=== PATIENT | male | born 1970 | race Caucasian/White ===

== ENCOUNTER 2017-05-17 11:11 | Emergency (ER) | payer OTHER ==
[2017-05-17 11:15] VITALS: BP 121/77
== END 2017-05-17 12:26 | disposition left against medical advice (07) ==
LOC: ER 11:11
DX: Z53.21 Procedure and treatment not carried out due to patient leaving prior to being seen by health care provider (principal)

== ENCOUNTER 2017-05-18 16:23 | Emergency (ER) | payer SELFPAY ==
--- NOTE | 2017-05-18 18:27 | ER Document Report ---
ED Medical Screen (RME) - General Chief Complaint: Penile Problem Stated Complaint: PENILE SWELLING, PAIN Time Seen by Provider: 05/18/17 18:26 Notes: Patient states for 5 days he has had a progressively worsening abscess on his penis. He states he believes is secondary to shaving. He denies any chronic medical problems. TRAVEL OUTSIDE OF THE [place] IN LAST 30 DAYS: No - Related Data Allergies/Adverse Reactions: Penicillins Allergy (Verified 05/18/17 18:00) Home Medications: Current Home Medications No Home Medications 05/18/17 [History] Past Medical History - Social History Chew tobacco use (# tins/day): No Frequency of alcohol use: Social Drug Abuse: None - Past Medical History Cardiac Medical History: Reports: Hx Hypertension - states is not on meds for the hypertension Renal/ Medical History: Denies: Hx Peritoneal Dialysis Psychiatric Medical History: Reports: Hx Depression Past Surgical History: Reports: Hx Herniorrhaphy - age 10 - Immunizations Hx Diphtheria, Pertussis, Tetanus Vaccination: Yes Physical Exam - Vital signs Vitals: Temp Pulse Resp BP Pulse Ox 97.5 F 91 18 122/76 99 05/18/17 16:42 05/18/17 16:42 05/18/17 16:42 05/18/17 16:42 05/18/17 16:42 Course - Vital Signs Vital signs: Temp Pulse Resp BP Pulse Ox 97.5 F 91 18 122/76 99 05/18/17 16:42 05/18/17 16:42 05/18/17 16:42 05/18/17 16:42 05/18/17 16:42
[2017-05-18 18:55] LABS: ABSOLUTE EOSINOPHILS # (AUTO) 0.5 10^3/uL (0.0-0.6); ABSOLUTE LYMPHOCYTES (AUTO) 1.3 10^3/uL (0.5-4.7); ABSOLUTE NEUT (AUTO) 7.4 10^3/uL (1.7-8.2); BASOPHILS % (AUTO) 0.3 % (0-2); EOSINOPHILS % (AUTO) 4.5 % (0-6); HEMATOCRIT 40.4 % (37.9-51.0); HEMOGLOBIN 14.1 g/dL (13.5-17.0); HGB HCT DIFFERENCE 1.9; LYMPHOCYTES % (AUTO) 12.8 % (13-45); MEAN CORPUSCULAR HEMOGLOBIN 32.1 pg (27.0-33.4); MEAN CORPUSCULAR HGB CONC 34.9 g/dL (32.0-36.0); MEAN CORPUSCULAR VOLUME 92 fl (80-97); MONOCYTES % (AUTO) 9.6 % (3-13); RED BLOOD COUNT 4.39 10^6/uL (4.35-5.55); RED CELL DISTRIBUTION WIDTH 12.9 % (11.5-14.0); SEGMENTED NEUTROPHILS % (AUTO) 72.8 % (42-78); WHITE BLOOD COUNT 10.2 10^3/uL (4.0-10.5)
[2017-05-18 19:12] LABS: ANION GAP 12 (5-19); BLOOD UREA NITROGEN 11 mg/dL (7-20); CALCIUM 9.2 mg/dL (8.4-10.2); CARBON DIOXIDE 27 mmol/L (22-30); CHLORIDE 104 mmol/L (98-107); CREATININE RESULT 0.87 mg/dL (0.52-1.25); GLUCOSE 95 mg/dL (75-110); POTASSIUM 4.1 mmol/L (3.6-5.0); SODIUM 143.1 mmol/L (137-145)
[2017-05-18] MEDS ORDERED: VANCOMYCIN HCL INJ 1000 MG VIAL IV ONE (19:57)
[2017-05-18] MEDS ORDERED: NORMAL SALINE 1000 ML 1,000 ML IV ONE (19:58)
--- NOTE | 2017-05-18 19:58 | ER Document Report ---
ED General - General Chief Complaint: Penile Problem Stated Complaint: PENILE SWELLING, PAIN Time Seen by Provider: 05/18/17 18:26 Notes: Patient is a 46-year-old male without any past medical history who presents with 5 days of progressively worsening swelling and pain into his penis and scrotum. Patient states that initially he had what appeared to be an ingrown hair at the base of his penis that he tried to shave. He states that the area became increasingly red, irritated and more painful. He states that since that time he has had a severe, constant, throbbing, aching pain that is worse at the base of the penis but is present in the entirety of his genitals. He has never had similar symptoms in the past. Nothing improves the pain. He still states touching the area worsens the pain. He has not been able see a primary care doctor regarding today's concerns. He notes that he has had subjective fever at home but has not recorded a temperature. TRAVEL OUTSIDE OF THE [place] IN LAST 30 DAYS: No - Related Data Allergies/Adverse Reactions: Penicillins Allergy (Verified 05/18/17 18:00) Home Medications: Current Home Medications No Home Medications 05/18/17 [History] Past Medical History - General Information source: Patient - Social History Smoking Status: Current Some Day Smoker Chew tobacco use (# tins/day): No Frequency of alcohol use: Social Drug Abuse: None Lives with: Family Family History: Reviewed & Not Pertinent Patient has suicidal ideation: No Patient has homicidal ideation: No - Past Medical History Cardiac Medical History: Reports: Hx Hypertension - states is not on meds for the hypertension Renal/ Medical History: Denies: Hx Peritoneal Dialysis Psychiatric Medical History: Reports: Hx Depression Past Surgical History: Reports: Hx Herniorrhaphy - age 10 - Immunizations Hx Diphtheria, Pertussis, Tetanus Vaccination: Yes Review of Systems - Review of Systems Notes: Constitutional: Negative for fever. HENT: Negative for sore throat. Eyes: Negative for visual changes. Cardiovascular: Negative for chest pain. Respiratory: Negative for shortness of breath. Gastrointestinal: Negative for abdominal pain, vomiting or diarrhea. Genitourinary: Negative for dysuria. Musculoskeletal: Negative for back pain. Skin: Positive for an abscess with associated cellulitis at the base of the penis and surrounding scrotum Neurological: Negative for headaches, weakness or numbness. 10 point ROS negative except as marked above and in HPI. Physical Exam - Vital signs Vitals: Temp Pulse Resp BP Pulse Ox 97.5 F 91 18 122/76 99 05/18/17 16:42 05/18/17 16:42 05/18/17 16:42 05/18/17 16:42 05/18/17 16:42 Interpretation: Normal Notes: PHYSICAL EXAMINATION: GENERAL: Appears uncomfortable but in no acute distress HEAD: Atraumatic, normocephalic. EYES: Pupils equal round and reactive to light, extraocular movements intact, sclera anicteric, conjunctiva are normal. ENT: nares patent, oropharynx clear without exudates. Moist mucous membranes. NECK: Normal range of motion, supple without lymphadenopathy LUNGS: Breath sounds clear to auscultation bilaterally and equal. No wheezes rales or rhonchi. HEART: Regular rate and rhythm without murmurs ABDOMEN: Soft, nontender, normoactive bowel sounds. No guarding, no rebound. No masses appreciated. : There is extensive erythema and edema of the entirety of the penis and scrotum. There is an abscess that starts at the dorsal base of the penis and extends towards the 9 o'clock position again at the base of the penis. There are 4 open areas, the edges of which are necrotic. EXTREMITIES: Normal range of motion, no pitting or edema. No cyanosis. NEUROLOGICAL: No focal neurological deficits. Moves all extremities spontaneously and on command. PSYCH: Normal mood, normal affect. SKIN: Warm, Dry, normal turgor, no rashes or lesions noted. Course - Re-evaluation Re-evalutation: 05/18/17 19:56 Patient presents with a large abscess extending from the dorsal base of the penis at the 12 o'clock position toward the 9 o'clock position with extensive swelling of the entirety of the penis and scrotum and associated erythema concerning for extension of the cellulitis over the area. The abscess itself is in a highly sensitive position and there are 2 openings that do demonstrate purulent contents underneath. Given the location and size of this abscess with associated cellulitis that is diffusely present on the penis and scrotum, I believe the patient requires transfer for urology assessment and likely definitive management under general anesthesia on the operating room. In the interim I have started the patient on IV antibiotics including vancomycin and ceftriaxone. Patient has also been provided IV pain medications. I have contacted [facility] for transfer. 05/18/17 20:13 I have spoken with the urologist on-call who has accepted the patient for transfer. The patient will go via personal vehicle. EMTALA has been completed. Patient will leave as soon as the antibiotics that have started are completed. 05/18/17 22:51 Patient will apparently follow-up in office tomorrow as the urologist at [facility] called back and stated the patient is taking too long to arrive. I have again expressed that based on the information I have shared with including a photo of the patient's genitals, I think the safest plan is for inpatient admission, IV antibiotics, and OR management. However, states this can be completed as an outpatient safely. 05/18/17 23:17 I have discussed with the patient and his family at the bedside at length regarding the plan proposed by . The patient and his family bedside has spontaneously expressed extreme discomfort with this plan stating that they do not believe that this is a procedure that could be completed in the office and also inquiring about what the solution to his diffuse cellulitis would be. Also of note, since patient has been here the cellulitis has started extend up to his suprapubic region. I have stated that I do agree that this appears to again be a pathology that requires management in an operating room setting as well as inpatient hospitalization for IV antibiotics. The patient and his note this time have requested that I transfer him to an alternative facility as they do not feel comfortable with the plan initiated by Dr. Dumont. I have contacted [facility] for transfer. 05/18/17 23:40 I have spoken with a physician office assistant receptionist working under Dr. Cruz who is accepted the patient at [facility]. The patient will go via private vehicle and his family members will be driving him as he has had narcotic pain medications. He is stable for transfer - Vital Signs Vital signs: Temp Pulse Resp BP Pulse Ox 97.5 F 88 18 124/83 100 05/18/17 22:43 05/18/17 22:43 05/18/17 22:43 05/18/17 22:43 05/18/17 22:43 - Laboratory Result Diagrams: 05/18/17 18:45 05/18/17 18:45 Laboratory results interpreted by me: 05/18/17 18:45 Lymphocytes % 12.8 L Discharge - Discharge Clinical Impression: Abscess of shaft of penis, Cellulitis of penis, Cellulitis of scrotum Condition: Fair Disposition: [facility] Additional Instructions: Please go to the [facility] urology office tomorrow morning at 7:15 AM. The address is [address] [place] [address].
[2017-05-18] MEDS: MORPHINE SULFATE 10 MG/ML INJ IV PRN ×2 (20:13→23:16)
[2017-05-18] MEDS ORDERED: CEFTRIAXONE 1 GM/D5W RTU 1 GM/50 ML RTUPB IV ONE (21:00)
[2017-05-18 22:52] VITALS: BP 124/83
[2017-05-18] MEDS ORDERED: HYDROCODONE/ACETAMINOPHEN 5-325 MG 6 TAB/DSPK PO PRN (22:58)
[2017-05-18] MEDS ORDERED: MORPHINE SULFATE 10 MG/ML INJ IV ONE (23:39)
== END 2017-05-19 00:37 | disposition short-term general hospital (02) ==
LOC: ER 16:23
DX: N48.21 Abscess of corpus cavernosum and penis (principal); N49.2 Inflammatory disorders of scrotum; F17.200 Nicotine dependence, unspecified, uncomplicated; Z88.0 Allergy status to penicillin
CPT/HCPCS: 96376; 99284; 96361; 96375; 96365; 36415; 85025; 80048; J2270 ×2; J7030; J3370; J0696

== ENCOUNTER 2020-05-04 10:17 | Inpatient (IN) | payer SELFPAY ==
--- NOTE | 2020-05-04 10:37 | ER Document Report ---
ED Medical Screen (RME) - General Chief Complaint: Abdominal Pain Stated Complaint: ABDOMINAL PAIN Time Seen by Provider: 05/04/20 10:30 Notes: Patient is a 49-year-old male presents emergency department with a chief complaint of mid upper abdominal pain. States that his symptoms started a couple days ago. States that he has been having diarrhea. He does not know if he has had any contact with anybody who tested positive for COVID-19, but would like to be tested. Denies any alcohol use. Exam: Tender mid upper abdomen. I have greeted and performed a rapid initial assessment of this patient. A comprehensive ED assessment and evaluation of the patient, analysis of test results and completion of medical decision making process will be conducted by an additional ED providers. TRAVEL OUTSIDE OF THE [place] IN LAST 30 DAYS: No - Related Data Allergies/Adverse Reactions: Penicillins Allergy (Verified 05/04/20 10:30) Past Medical History - Past Medical History Cardiac Medical History: Reports: Hx Hypertension - states is not on meds for the hypertension Renal/ Medical History: Denies: Hx Peritoneal Dialysis Psychiatric Medical History: Reports: Hx Depression Past Surgical History: Reports: Hx Herniorrhaphy - age 10 - Immunizations Hx Diphtheria, Pertussis, Tetanus Vaccination: Yes Physical Exam - Vital signs Vitals: Temp Pulse Resp BP Pulse Ox 97.6 F 105 H 16 135/97 H 100 05/04/20 10:29 05/04/20 10:29 05/04/20 10:29 05/04/20 10:29 05/04/20 10:29 Course - Vital Signs Vital signs: Temp Pulse Resp BP Pulse Ox 97.6 F 105 H 16 135/97 H 100 05/04/20 10:29 05/04/20 10:29 05/04/20 10:29 05/04/20 10:29 05/04/20 10:29
[2020-05-04] MEDS ORDERED: MAG HYDROX/AL HYDROX/SIMETH SUSP 30 ML UDCUP PO ONE (10:38)
[2020-05-04] MEDS ORDERED: NORMAL SALINE 1000 ML 1,000 ML IV ONE ×2 (10:38→12:41)
[2020-05-04] MEDS ORDERED: METOCLOPRAMIDE HCL ORAL SOLN 10 MG/10 ML UDCUP PO ONE (10:38)
[2020-05-04] MEDS ORDERED: LIDOCAINE 2% VISCOUS SOLN 15 ML UDCUP PO ONE (10:38)
[2020-05-04] MEDS ORDERED: ONDANSETRON HCL INJ/PF 4 MG/2 ML SDV IV ONE (11:19)
--- NOTE | 2020-05-04 11:20 | ER Document Report ---
ED GI/ - General Chief Complaint: Abdominal Pain Stated Complaint: ABDOMINAL PAIN Time Seen by Provider: 05/04/20 10:30 Mode of Arrival: Ambulatory Information source: Patient Notes: Patient presents with a 2-day history of belching and diarrhea. Patient states he has had diarrhea x10 episodes today. Patient complains of upper abdominal tenderness. Patient denies any fever. Patient reports nausea vomiting x2 episodes. Patient denies any urinary symptoms. Patient has underlying history of hypertension, depression and previous inguinal hernia repair. TRAVEL OUTSIDE OF THE [place] IN LAST 30 DAYS: No - HPI Patient complains to provider of: Abdominal pain, Diarrhea, Vomiting Onset: Other - 2 days Timing/Duration: Worse Quality of pain: Achy, Pressure Pain Level: 4 Location: Epigastric Associated symptoms: Diarrhea, Nausea, Vomiting. denies: Blood in emesis, Blood in stool, Constipation, Urinary hesitancy, Urinary frequency, Urinary retention, Urinary urgency Exacerbated by: Denies Relieved by: Denies Similar symptoms previously: No Recently seen / treated by doctor: No - Related Data Allergies/Adverse Reactions: Penicillins Allergy (Verified 05/04/20 12:03) Past Medical History - General Information source: Patient - Social History Smoking Status: Never Smoker Frequency of alcohol use: None Drug Abuse: None Occupation: None Family History: Reviewed & Not Pertinent - Past Medical History Cardiac Medical History: Reports: Hx Hypertension - states is not on meds for the hypertension Renal/ Medical History: Denies: Hx Peritoneal Dialysis Psychiatric Medical History: Reports: Hx Depression Past Surgical History: Reports: Hx Herniorrhaphy - age 10 - Immunizations Hx Diphtheria, Pertussis, Tetanus Vaccination: Yes Review of Systems - Review of Systems Constitutional: No symptoms reported. denies: Fever EENT: No symptoms reported Cardiovascular: No symptoms reported. denies: Chest pain Respiratory: No symptoms reported. denies: Cough, Short of breath Gastrointestinal: Abdomen distended, Abdominal pain, Diarrhea, Nausea, Vomiting. denies: Black stools, Rectal bleeding Genitourinary: No symptoms reported. denies: Dysuria, Flank pain Male Genitourinary: No symptoms reported Musculoskeletal: No symptoms reported. denies: Back pain Skin: No symptoms reported Hematologic/Lymphatic: No symptoms reported Neurological/Psychological: No symptoms reported Physical Exam - Vital signs Vitals: Temp Pulse Resp BP Pulse Ox 97.6 F 105 H 16 135/97 H 100 05/04/20 10:29 05/04/20 10:29 05/04/20 10:29 05/04/20 10:29 05/04/20 10:29 - Notes Notes: PHYSICAL EXAMINATION: GENERAL: Well-appearing and in no acute distress. HEAD: Atraumatic, normocephalic. EYES: sclera anicteric, conjunctiva are normal. ENT: nares patent. Moist mucous membranes. NECK: Normal range of motion, supple without lymphadenopathy LUNGS: CTAB and equal. No wheezes rales or rhonchi. HEART: Regular rate and rhythm without murmurs ABDOMEN: Mild distention, epigastric, periumbilical tenderness normal bowel sounds, no guarding. EXTREMITIES: Normal range of motion, no pitting edema. No cyanosis. BACK:No CVA tenderness NEUROLOGICAL: Cranial nerves grossly intact. Normal speech. PSYCH: Normal mood, normal affect. SKIN: Warm, Dry, normal turgor, no rashes or lesions noted Course - Re-evaluation Re-evalutation: 05/04/20 12:17 Patient with continued vomiting despite IV Zofran. Patient also complaining of continued abdominal pain requesting something for pain relief. Medications ordered. 05/04/20 13:06 Patient resting with eyes closed, arouses easily to voice. Patient states nausea and abdominal tenderness have resolved at this time. 05/04/20 16:10 Patient with epigastric tenderness at this time. Patient is awaiting CT imaging. No additional vomiting. 05/04/20 16:[address] Vasquez and Dr. Sharp, Dr. Sharp and to evaluate patient. NG tube ordered. 05/04/20 18:01 Dr. Sharp agrees to accept patient for admission. - Vital Signs Vital signs: Temp Pulse Resp BP Pulse Ox 97.8 F 71 16 148/89 H 100 05/04/20 16:47 05/04/20 16:47 05/04/20 16:47 05/04/20 16:47 05/04/20 16:47 - Laboratory Result Diagrams: 05/04/20 11:50 05/04/20 11:50 Laboratory results interpreted by me: 05/04/20 05/04/20 11:50 11:50 WBC 11.1 H RBC 5.69 H Hgb 17.4 H RDW 14.1 H Absolute Neuts (auto) 8.5 H Carbon Dioxide 19 L Total Protein 9.1 H Labs- All tests 24 hr 05/04/20 05/04/20 05/04/20 11:50 11:50 13:55 WBC 11.1 H RBC 5.69 H Hgb 17.4 H Hct 49.2 MCV 87 MCH 30.6 MCHC 35.3 RDW 14.1 H Plt Count 390 Lymph % (Auto) 15.0 [place] % (Auto) 6.5 Eos % (Auto) 2.1 Baso % (Auto) 0.5 Absolute Neuts (auto) 8.5 H Absolute Lymphs (auto) 1.7 Absolute Monos (auto) 0.7 Absolute Eos (auto) 0.2 Absolute Basos (auto) 0.1 Seg Neutrophils % 75.9 Sodium 139.9 Potassium 4.1 Chloride 106 Carbon Dioxide 19 L Anion Gap 15 BUN 12 Creatinine 0.92 Est GFR ( Amer) > 60 Est GFR (MDRD) Non-Af > 60 Glucose 108 Calcium 9.6 Total Bilirubin 0.5 Direct Bilirubin 0.2 Neonat Total Bilirubin Not Reportable Neonat Direct Bilirubin Not Reportable Neonat Indirect Bili Not Reportable AST 27 ALT 27 Alkaline Phosphatase 83 Total Protein 9.1 H Albumin 4.9 Lipase 28.9 Urine Color YELLOW Urine Appearance CLEAR Urine pH 5.0 Ur Specific Lowry 1.021 Urine Protein NEGATIVE Urine Glucose (UA) NEGATIVE Urine Ketones NEGATIVE Urine Blood NEGATIVE Urine Nitrite NEGATIVE Urine Bilirubin NEGATIVE Urine Urobilinogen NEGATIVE Ur Leukocyte Esterase NEGATIVE Urine WBC (Auto) 1 Urine RBC (Auto) 1 Urine Mucus (Auto) FEW Urine Ascorbic Acid NEGATIVE - Diagnostic Test Radiology reviewed: Image reviewed, Reports reviewed Discharge - Discharge Clinical Impression: Abdominal pain Qualifiers: Abdominal location: upper abdomen, unspecified Qualified Code(s): R10.10 - Upper abdominal pain, unspecified Bowel obstruction Qualifiers: Intestinal obstruction type: unspecified Intestinal obstruction extent: unspecified extent Qualified Code(s): K56.609 - Unspecified intestinal obstruction, unspecified as to partial versus complete obstruction Condition: Fair Disposition: ADMITTED INPATIENT Admitting Provider: Surgicalist Unit Admitted: Surgical Floor
[2020-05-04 12:11] LABS: ABSOLUTE BASOPHILS # (AUTO) 0.1 10^3/uL (0.0-0.2); ABSOLUTE EOSINOPHILS # (AUTO) 0.2 10^3/uL (0.0-0.6); ABSOLUTE LYMPHOCYTES (AUTO) 1.7 10^3/uL (0.5-4.7); ABSOLUTE MONOCYTES (AUTO) 0.7 10^3/uL (0.1-1.4); ABSOLUTE NEUT (AUTO) 8.5 10^3/uL (1.7-8.2); BASOPHILS % (AUTO) 0.5 % (0-2); EOSINOPHILS % (AUTO) 2.1 % (0-6); HEMATOCRIT 49.2 % (37.9-51.0); HEMOGLOBIN 17.4 g/dL (13.5-17.0); MEAN CORPUSCULAR HEMOGLOBIN 30.6 pg (27.0-33.4); MEAN CORPUSCULAR HGB CONC 35.3 g/dL (32.0-36.0); MEAN CORPUSCULAR VOLUME 87 fl (80-97); MONOCYTES % (AUTO) 6.5 % (3-13); PLATELET COUNT 390 10^3/uL (150-450); RED BLOOD COUNT 5.69 10^6/uL (4.35-5.55); RED CELL DISTRIBUTION WIDTH 14.1 % (11.5-14.0); SEGMENTED NEUTROPHILS % (AUTO) 75.9 % (42-78); TOTAL CELLS COUNTED % (AUTO) 100 %; WHITE BLOOD COUNT 11.1 10^3/uL (4.0-10.5)
[2020-05-04] MEDS ORDERED: DIPHENHYDRAMINE HCL 50 MG/ML VIAL IV ONE (12:16)
[2020-05-04] MEDS ORDERED: PROCHLORPERAZINE EDISYLATE INJ 10 MG/2 ML VIAL IV ONE (12:16)
[2020-05-04] MEDS ORDERED: FENTANYL CITRATE INJ/PF 100 MCG/2 ML AMPUL IV ONE (12:17)
[2020-05-04 12:26] LABS: ALBUMIN 4.9 g/dL (3.5-5.0); ALKALINE PHOSPHATASE 83 U/L (38-126); ANION GAP 15 (5-19); ASPARTATE AMINO TRANSFERASE 27 U/L (17-59); BILIRUBIN,DIRECT 0.2 mg/dL (0.0-0.4); BILIRUBIN,TOTAL 0.5 mg/dL (0.2-1.3); BLOOD UREA NITROGEN 12 mg/dL (7-20); CALCIUM 9.6 mg/dL (8.4-10.2); CARBON DIOXIDE 19 mmol/L (22-30); CHLORIDE 106 mmol/L (98-107); GLUCOSE 108 mg/dL (75-110); POTASSIUM 4.1 mmol/L (3.6-5.0); TOTAL PROTEIN 9.1 g/dL (6.3-8.2)
--- NOTE | 2020-05-04 12:49 | RADIOLOGY REPORT (SQ) ---
EXAM DESCRIPTION: ABDOMEN 2 VIEWS IMAGES COMPLETED DATE/TIME: 05/04/2020 12:21 pm REASON FOR STUDY: abd pain, n/v/d COMPARISON: None. NUMBER OF VIEWS: 2 TECHNIQUE: Supine and upright radiographic image of the abdomen acquired. LIMITATIONS: None. FINDINGS: BOWEL GAS PATTERN: There are dilated small bowel loops over the mid abdomen measuring up t o 3.5 cm diameter with small air-fluid levels. No free air identified. CALCIFICATIONS: No suspicious calcifications. SOFT TISSUES: No gross mass or suggestion of organomegaly. HARDWARE: None in the abdomen. BONES: No acute fracture. No worrisome bone lesions. OTHER: No other significant finding. IMPRESSION: There are dilated small bowel loops over the mid abdomen measuring up to 3.5 cm diameter with small air-fluid levels, possible developing early obstruction versus focal inflammatory process . Follow-up recommended. TECHNICAL DOCUMENTATION: JOB ID: [id number] [place]-72 2010 [employer]- All Rights Reserved Reading location - IP/workstation name: [email or web address]
[2020-05-04 14:24] LABS: APPEARANCE,URINE CLEAR; BILIRUBIN,URINE NEGATIVE (NEGATIVE); COLOR,URINE YELLOW; GLUCOSE, URINE NEGATIVE (NEGATIVE); KETONES,URINE NEGATIVE (NEGATIVE); LEUKOCYTE ESTERASE,URINE NEGATIVE (NEGATIVE); NITRITE,URINE NEGATIVE (NEGATIVE); PROTEIN,URINE NEGATIVE (NEGATIVE); URINE SPECIFIC GRAVITY 1.021; UROBILINOGEN,URINE NEGATIVE mg/dL (<2.0)
[2020-05-04] MEDS ORDERED: PHARMACY COMMUNICATION ORDER MC NR (17:00)
--- NOTE | 2020-05-04 17:11 | RADIOLOGY REPORT (SQ) ---
EXAM DESCRIPTION: CT ABD/PELVIS WITH IV ORAL IMAGES COMPLETED DATE/TIME: 05/04/2020 4:36 pm REASON FOR STUDY: abd pain, eval for obstruction COMPARISON: None. TECHNIQUE: CT scan of the abdomen and pelvis performed with intravenous and oral contrast using jenna aracely scanning technique with dynamic intravenous contrast injection. Images reviewed with lung, soft t issue, and bone windows. Reconstructed coronal and sagittal MPR images reviewed. Delayed images for e valuation of the urinary system also acquired. All images stored on PACS. All CT scanners at this facility use dose modulation, iterative reconstruction, and/or weight based d osing when appropriate to reduce radiation dose to as low as reasonably achievable (ALARA). [facility]: Dose Right [facility]: CareDose [facility]: Dose Right [facility]: Teradose 4D [facility]: [place] CONTRAST TYPE AND DOSE: contrast/concentration: Isovue 350.00 mmol/ml; Total Contrast Delivered: 96. 0 ml; Total Saline Delivered: 71.0 ml RENAL FUNCTION: BUN 12 creatinine 0.92. RADIATION DOSE: CT Rad equipment meets quality standard of care and radiation dose reduction techniq ues were employed. CTDIvol: 7.0 - 9.9 mGy. DLP: 1029 mGy-cm.. LIMITATIONS: None. FINDINGS: LOWER CHEST: No significant findings. No nodules or infiltrates. LIVER: Normal size. No masses. No dilated ducts. SPLEEN: Normal size. No focal lesions. PANCREAS: No masses. No significant calcifications. No adjacent inflammation or peripancreatic fluid collections. Pancreatic duct not dilated. GALLBLADDER: No identified stones by CT criteria. No inflammatory changes to suggest cholecystitis. ADRENAL GLANDS: No significant masses or asymmetry. RIGHT KIDNEY AND URETER: No solid masses. No significant calcification. No hydronephrosis or hydroure ter. LEFT KIDNEY AND URETER: No solid masses. No significant calcification. No hydronephrosis or hydrouret er. AORTA AND VESSELS: No aneurysm. No dissection. Renal arteries, SMA, celiac without stenosis. RETROPERITONEUM: No retroperitoneal adenopathy, hemorrhage or masses. BOWEL AND PERITONEAL CAVITY: Contrast in the stomach which is markedly distended. Diffuse dilation t hroughout the small bowel. No visualized masses. No free fluid. No inflammatory changes or thickenin g of bowel wall. APPENDIX: Normal. PELVIS: No significant masses. Normal bladder. No free fluid. ABDOMINAL WALL: No masses. No hernias. BONES: Wedge deformity of the L4 vertebra. No other significant findings. OTHER: No other significant finding. IMPRESSION: 1. DISTAL SMALL BOWEL OBSTRUCTION. A CLEAR-CUT OBSTRUCTING LESION IS NOT VISUALIZED. 2. 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 3. NO OTHER SIGNIFICANT OR ACUTE FINDINGS IN THE ABDOMEN OR PELVIS. TECHNICAL DOCUMENTATION: JOB ID: [id number] Quality ID # [id number]: Final reports with documentation of one or more dose reduction techniques (e.g., Au tomated exposure control, adjustment of the mA and/or kV according to patient size, use of iterative reconstruction technique) 2010 [employer]- All Rights Reserved Reading location - IP/workstation name: [email or web address]
[2020-05-04] MEDS ORDERED: LORAZEPAM INJ 2 MG/1 ML VIAL IV ONE (17:19)
[2020-05-04] MEDS ORDERED: ONDANSETRON HCL INJ/PF 4 MG/2 ML SDV IV PRN (18:00)
--- NOTE | 2020-05-04 18:07 | PDOC H&P ---
History of Present Illness Admission Date/PCP: NO LOCALDC Patient complains of: Abdominal pain nausea vomiting diarrhea History of Present Illness: ELEAZAR HARDING is a 49 year old male Presents to the emergency department via ground rescue with a 3-1/2 to 4-day history of abdominal pain nausea vomiting and diarrhea. He thinks he got sick after eating some turkey. Patient denies similar episodes, history of bowel obstruction, or abdominal trauma. Seen in the emergency department where he was found to be dehydrated received 2 L of IV fluids. Acute abdominal series suggested a possible small bowel obstruction and a CT scan with oral and IV contrast showed multiple dilated loops of small bowel, however gas throughout the colon and rectum. Findings consistent with gastroenteritis, versus ileus versus partial small bowel obstruction. Surgery was consulted, patient was advised admission, n.p.o., IV fluids and nasogastric decompression. Nasogastric tube, 16 Vincent[place], inserted with return of 500 cc of fluid. Patient clinically improved. Patient now being admitted to the surgicalist service. No Covid test has been performed Past Medical History Past Medical History: History of suicidal attempts; hypertension Cardiac Medical History: Reports: Hypertension - states is not on meds for the hypertension Psychiatric Medical History: Reports: Depression Past Surgical History Past Surgical History: Left inguinal herniorrhaphy, open Past Surgical History: Reports: Herniorrhaphy - age 10, Orthopedic Surgery - right arm Social History Information Source: Patient Smoking Status: Unknown if Ever Smoked Electronic Cigarette use?: Yes Frequency of Alcohol Use: Heavy Hx Recreational Drug Use: Yes Drugs: Cocaine, Marijuana, Other Hx Prescription Drug Abuse: Yes Family History Family History: None, Reviewed & Not Pertinent Parental Family History Reviewed: No Children Family History Reviewed: No Sibling(s) Family History Reviewed.: No Medication/Allergy Home Medications: No Home Medications 05/18/17 Allergies/Adverse Reactions: Penicillins Allergy (Verified 05/04/20 12:03) Review of Systems ROS unobtainable: Due to mental status, Other - Patient received Ativan, and is very somnolent Physical Exam Vital Signs: Temp Pulse Resp BP Pulse Ox 97.8 F 71 16 148/89 H 100 05/04/20 16:47 05/04/20 16:47 05/04/20 16:47 05/04/20 16:47 05/04/20 16:47 Intake & Output 05/03/20 05/04/20 05/05/20 06:59 06:59 06:59 Intake Total 2000 Output Total 300 Balance 1700 Weight 83.915 kg General appearance: PRESENT: mild distress, other - Nasogastric tube functioning and draining gastric contents, cloudy orange color Head exam: PRESENT: normocephalic Eye exam: PRESENT: EOMI Mouth exam: PRESENT: dry mucosa Neck exam: PRESENT: full ROM Respiratory exam: PRESENT: rhonchi Cardiovascular exam: PRESENT: RRR Pulses: PRESENT: normal carotid pulses, normal radial pulses, normal femoral pulses GI/Abdominal exam: PRESENT: other - Slightly distended, nontender, no peritoneal signs no rigidity. No organomegaly. Rectal exam: PRESENT: deferred Extremities exam: PRESENT: full ROM Musculoskeletal exam: PRESENT: full ROM Neurological exam: PRESENT: oriented to person, oriented to place, oriented to time, oriented to situation Psychiatric exam: PRESENT: other - Very sleepy Results Laboratory Results: 05/04/20 11:50 05/04/20 11:50 05/04/20 05/04/20 05/04/20 11:50 11:50 13:55 WBC 11.1 H RBC 5.69 H Hgb 17.4 H Hct 49.2 MCV 87 MCH 30.6 MCHC 35.3 RDW 14.1 H Plt Count 390 Seg Neutrophils % 75.9 Sodium 139.9 Potassium 4.1 Chloride 106 Carbon Dioxide 19 L Anion Gap 15 BUN 12 Creatinine 0.92 Est GFR ( Amer) > 60 Glucose 108 Calcium 9.6 Total Bilirubin 0.5 AST 27 Alkaline Phosphatase 83 Total Protein 9.1 H Albumin 4.9 Lipase 28.9 Urine Color YELLOW Urine Appearance CLEAR Urine pH 5.0 Ur Specific [place] 1.021 Urine Protein NEGATIVE Urine Glucose (UA) NEGATIVE Urine Ketones NEGATIVE Urine Blood NEGATIVE Urine Nitrite NEGATIVE Ur Leukocyte Esterase NEGATIVE Urine WBC (Auto) 1 Urine RBC (Auto) 1 Impressions: Abdomen X-Ray 05/04/20 11:51 IMPRESSION: There are dilated small bowel loops over the mid abdomen measuring up to 3.5 cm diameter with small air-fluid levels, possible developing early obstruction versus focal inflammatory process. Follow-up recommended. Abdomen/Pelvis CT 05/04/20 16:30 IMPRESSION: 1. DISTAL SMALL BOWEL OBSTRUCTION. A CLEAR-CUT OBSTRUCTING LESION IS NOT V ISUALIZED. 2. 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 3. NO OTHER SIGNIFICANT OR ACUTE FINDINGS IN THE ABDOMEN OR PELVIS. Assessment & Plan - Diagnosis (1) Abdominal pain Qualifiers: Abdominal location: upper abdomen, unspecified Qualified Code(s): R10.10 - Upper abdominal pain, unspecified Is this a current diagnosis for this admission?: Yes Plan: Impression: Acute abdominal pain associated with nausea and vomiting diarrhea, clinical picture and radiographic images most consistent with probable gastroenteritis; low clinical suspicion for acute abdomen, or small bowel obstruction. Recommendations: 1. Admit, keep n.p.o., IV fluids and continue nasogastric decompression 2. We will check abdominal films in the morning. Hopefully intra-abdominal process will have resolved, and nasogastric tube can be removed soon 3. I have reviewed the above with the emergency department staff. (2) Dehydration Is this a current diagnosis for this admission?: Yes (3) Substance abuse Is this a current diagnosis for this admission?: Yes (4) Smoker Is this a current diagnosis for this admission?: Yes - Time Time Spent with patient: 30 minutes Time Spent: 50 to 70 Minutes Critical Time spent with patient: Less than 15 minutes Smoking Cessation Education: 3 to 10 minutes Medications reviewed and adjusted accordingly: Yes Anticipated Discharge Disposition: Home, Self Care Anticipated Discharge Timeframe: within 48 hours
[2020-05-04] MEDS: RINGERS SOLUTION,LACTATED 1,000 ML IV PRN (20:33)
[2020-05-05] MEDS: RINGERS SOLUTION,LACTATED 1,000 ML IV PRN ×4 (05:56→23:47)
--- NOTE | 2020-05-05 09:17 | RADIOLOGY REPORT (SQ) ---
EXAM DESCRIPTION: KUB/ABDOMEN (SINGLE VIEW) IMAGES COMPLETED DATE/TIME: 05/04/2020 6:11 pm REASON FOR STUDY: Check Placement of NG Tube COMPARISON: None. NUMBER OF VIEWS: One view. TECHNIQUE: Supine radiographic image of the abdomen acquired. LIMITATIONS: None. FINDINGS: BOWEL GAS PATTERN: Scattered non-dilated gas-filled small bowel loops. Nonspecific patter n. CALCIFICATIONS: No suspicious calcifications. SOFT TISSUES: No gross mass or suggestion of organomegaly. Contrast material in the renal collecting system. HARDWARE: Nasogastric catheter tip and side-port overlies the body of the stomach. BONES: No acute fracture. No worrisome bone lesions. OTHER: No other significant finding. IMPRESSION: Nasogastric catheter tip and side-port overlies the body of the stomach.NON-SPECIFIC BOW EL GAS PATTERN. TECHNICAL DOCUMENTATION: JOB ID: [id number] 2010 [employer]- All Rights Reserved Reading location - IP/workstation name: [employer]
--- NOTE | 2020-05-05 09:19 | RADIOLOGY REPORT (SQ) ---
EXAM DESCRIPTION: ABDOMEN 2 VIEWS IMAGES COMPLETED DATE/TIME: 05/05/2020 7:37 am REASON FOR STUDY: Interval change in bowel gas pattern COMPARISON: 05/04/2020 NUMBER OF VIEWS: Two views. TECHNIQUE: Supine and erect/decubitus radiographic images of the abdomen acquired. LIMITATIONS: None. FINDINGS: FREE AIR: None. No abnormal gas collections. LUNG BASES: Clear. BOWEL GAS PATTERN: Similar dilated small bowel loops over the mid abdomen with a few air fluid levels . CALCIFICATIONS: No suspicious calcifications. SOFT TISSUES: No gross mass or suggestion of organomegaly. Contrast material fills the bladder. HARDWARE: NG tube tip overlies the distal body of the stomach. BONES: No acute fracture. No worrisome bone lesions. OTHER: No other significant finding. IMPRESSION: Similar dilated small bowel loops over the mid abdomen with a few air fluid levels. NG tube tip overlies the distal body of the stomach. TECHNICAL DOCUMENTATION: JOB ID: [id number] 2010 [employer]- All Rights Reserved Reading location - IP/workstation name: [email or web address]
--- NOTE | 2020-05-05 10:00 | PDOC PROGRESS REPORT ---
Subjective Date:: 05/05/20 Reason For Visit: PROBABLE GASTROENTERITIS Patient at bedrest, uneventful night; nasogastric tube now clear gastric fluid. Patient states he feels much better. Patient voided on his own 900 cc of urine. Physical Exam Vital Signs: Temp Pulse Resp BP Pulse Ox 97.3 F 71 18 130/75 H 100 05/05/20 08:05 05/05/20 08:05 05/05/20 08:05 05/05/20 08:05 05/05/20 08:05 Intake & Output 05/04/20 05/05/20 05/06/20 06:59 06:59 06:59 Intake Total 3000 Output Total 1200 Balance 1800 Weight 81.8 kg General appearance: PRESENT: other - Remains very sleepy GI/Abdominal exam: PRESENT: other - Abdomen not distended no peritoneal signs no rigidity. No guarding. Results Laboratory Results: 05/04/20 11:50 05/04/20 11:50 05/04/20 05/04/20 05/04/20 11:50 11:50 13:55 WBC 11.1 H RBC 5.69 H Hgb 17.4 H Hct 49.2 MCV 87 MCH 30.6 MCHC 35.3 RDW 14.1 H Plt Count 390 Seg Neutrophils % 75.9 Sodium 139.9 Potassium 4.1 Chloride 106 Carbon Dioxide 19 L Anion Gap 15 BUN 12 Creatinine 0.92 Est GFR ( Amer) > 60 Glucose 108 Calcium 9.6 Total Bilirubin 0.5 AST 27 Alkaline Phosphatase 83 Total Protein 9.1 H Albumin 4.9 Lipase 28.9 Urine Color YELLOW Urine Appearance CLEAR Urine pH 5.0 Ur Specific [place] 1.021 Urine Protein NEGATIVE Urine Glucose (UA) NEGATIVE Urine Ketones NEGATIVE Urine Blood NEGATIVE Urine Nitrite NEGATIVE Ur Leukocyte Esterase NEGATIVE Urine WBC (Auto) 1 Urine RBC (Auto) 1 Impressions: Abdomen/Pelvis CT 05/04/20 16:30 IMPRESSION: 1. DISTAL SMALL BOWEL OBSTRUCTION. A CLEAR-CUT OBSTRUCTING LESION IS NOT VISUALIZED. 2. 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 3. NO OTHER SIGNIFICANT OR ACUTE FINDINGS IN THE ABDOMEN OR PELVIS. KUB X-Ray 05/04/20 16:48 IMPRESSION: Nasogastric catheter tip and side-port overlies the body of the stomach.NON-SPECIFIC BOWEL GAS PATTERN. Abdomen X-Ray 05/05/20 07:00 IMPRESSION: Similar dilated small bowel loops over the mid abdomen with a few air fluid levels. NG tube tip overlies the distal body of the stomach. Assessment & Plan - Diagnosis (1) Abdominal pain Qualifiers: Abdominal location: upper abdomen, unspecified Qualified Code(s): R10.10 - Upper abdominal pain, unspecified Is this a current diagnosis for this admission?: Yes Plan: Impression: Clinically improved; A.m. abdominal films show a significant amount of gas in the colon, few air-fluid levels in the small bowel. Low suspicion for mechanical bowel obstruction Recommendations: 1. Clamp nasogastric tube. If patient tolerates anticipate removal later this morning 2. Anticipate advancing patient to clear liquids later today, home in the next 18 to 24 hours. (2) Dehydration Is this a current diagnosis for this admission?: Yes (3) Substance abuse Is this a current diagnosis for this admission?: Yes (4) Smoker Is this a current diagnosis for this admission?: Yes - Time Anticipated Discharge Disposition: Home, Self Care Anticipated Discharge Timeframe: within 24 hours
[2020-05-05] MEDS ORDERED: ACETAMINOPHEN 325 MG TABLET PO ONE (20:00)
[2020-05-06] MEDS ORDERED: INFLUENZA QUAD (6MOS+) 2020-21 VAC 0.5 ML SYR IM ONE (08:00)
--- NOTE | 2020-05-06 09:42 | RADIOLOGY REPORT (SQ) ---
EXAM DESCRIPTION: KUB/ABDOMEN (SINGLE VIEW) IMAGES COMPLETED DATE/TIME: 05/06/2020 9:33 am REASON FOR STUDY: abdominal distention COMPARISON: 05/05/2020 NUMBER OF VIEWS: One view. TECHNIQUE: Supine radiographic image of the abdomen acquired. LIMITATIONS: None. FINDINGS: BOWEL GAS PATTERN: Mildly prominent small bowel loops in the upper abdomen. There is air in stool throughout the colon. The findings are nonspecific. Upper abdomen and diaphragm are not de monstrated on today's study. CALCIFICATIONS: No suspicious calcifications. SOFT TISSUES: No gross mass or suggestion of organomegaly. HARDWARE: None in the abdomen. BONES: No acute fracture. No worrisome bone lesions. OTHER: No other significant finding. IMPRESSION: Gas pattern is nonspecific. Mildly prominent small bowel loops are present in the epiga stric region not significantly changed from yesterday. TECHNICAL DOCUMENTATION: JOB ID: [id number] 2010 [employer]- All Rights Reserved Reading location - IP/workstation name: [email or web address]
--- NOTE | 2020-05-06 14:21 | PDOC DISCHARGE SUMMARY ---
General - Admit/Disc Date/PCP Admission Date/Primary Care Provider: 05/05/20 11:05 Discharge Date: 05/06/20 - Discharge Diagnosis Final Diagnosis: Gastroenteritis - Assessment Summary: 49-year-old male admitted to hospital with abdominal distention, abdominal pain, nausea, vomiting, and signs of nonspecific gastroenteritis. He was admitted to the hospital, and started on antibiotics. His symptoms improved significantly. He has had multiple bowel movements. His x-rays are much improved. He is afebrile. At this time he is tolerating a regular diet, his abdominal pain has resolved, and he is doing well. It is felt that he has reached maximal hospital benefit, and is fit for discharge. - Additional Information Resuscitation Status: Full Code Discharge Diet: As Tolerated Discharge Activity: Activity As Tolerated Referrals: ORALIA,LINDA [NO LOCAL MD] - Follow up as needed Prescriptions: Metronidazole [Flagyl 500 mg Tablet] 500 mg PO TID #21 tablet Levofloxacin [Levaquin 500 mg Tablet] 500 mg PO DAILY #7 tablet Home Medications: Levofloxacin [Levaquin 500 mg Tablet] 500 mg PO DAILY #7 tablet 05/06/20 Metronidazole [Flagyl 500 mg Tablet] 500 mg PO TID #21 tablet 05/06/20 Additional Information: Discharge home. Diet as tolerated. Activity: Nonstrenuous. Levaquin 500 mg p.o. daily x7 days. Flagyl 500 mg p.o. 3 times daily, x7 days. Follow-up with [facility] as needed. History of Present Illiness History of Present Illness: ELEAZAR HARDING is a 49 year old male Physical Exam Vital Signs: Temp Pulse Resp BP Pulse Ox 97.8 F 78 16 138/76 H 95 05/06/20 11:58 05/06/20 11:58 05/06/20 11:58 05/06/20 11:58 05/06/20 11:58 Intake & Output 05/05/20 05/06/20 05/07/20 06:59 06:59 06:59 Intake Total 3000 6110 880 Output Total 1200 950 Balance 1800 5160 880 Weight 81.8 kg 81.8 kg Results Laboratory Results: WBC 11.1 10^3/uL (4.0-10.5) H 05/04/20 11:50 RBC 5.69 10^6/uL (4.35-5.55) H 05/04/20 11:50 Hgb 17.4 g/dL (13.5-17.0) H 05/04/20 11:50 Hct 49.2 % (37.9-51.0) 05/04/20 11:50 MCV 87 fl (80-97) 05/04/20 11:50 MCH 30.6 pg (27.0-33.4) 05/04/20 11:50 MCHC 35.3 g/dL (32.0-36.0) 05/04/20 11:50 RDW 14.1 % (11.5-14.0) H 05/04/20 11:50 Plt Count 390 10^3/uL (150-450) 05/04/20 11:50 Lymph % (Auto) 15.0 % (13-45) 05/04/20 11:50 [place] % (Auto) 6.5 % (3-13) 05/04/20 11:50 Eos % (Auto) 2.1 % (0-6) 05/04/20 11:50 Baso % (Auto) 0.5 % (0-2) 05/04/20 11:50 Absolute Neuts (auto) 8.5 10^3/uL (1.7-8.2) H 05/04/20 11:50 Absolute Lymphs (auto) 1.7 10^3/uL (0.5-4.7) 05/04/20 11:50 Absolute Monos (auto) 0.7 10^3/uL (0.1-1.4) 05/04/20 11:50 Absolute Eos (auto) 0.2 10^3/uL (0.0-0.6) 05/04/20 11:50 Absolute Basos (auto) 0.1 10^3/uL (0.0-0.2) 05/04/20 11:50 Seg Neutrophils % 75.9 % (42-78) 05/04/20 11:50 Sodium 139.9 mmol/L (137-145) 05/04/20 11:50 Potassium 4.1 mmol/L (3.6-5.0) 05/04/20 11:50 Chloride 106 mmol/L (98-107) 05/04/20 11:50 Carbon Dioxide 19 mmol/L (22-30) L 05/04/20 11:50 Anion Gap 15 (5-19) 05/04/20 11:50 BUN 12 mg/dL (7-20) 05/04/20 11:50 Creatinine 0.92 mg/dL (0.52-1.25) 05/04/20 11:50 Est GFR ( Amer) > 60 (>60) 05/04/20 11:50 Est GFR (MDRD) Non-Af > 60 (>60) 05/04/20 11:50 Glucose 108 mg/dL (75-110) 05/04/20 11:50 Calcium 9.6 mg/dL (8.4-10.2) 05/04/20 11:50 Total Bilirubin 0.5 mg/dL (0.2-1.3) 05/04/20 11:50 Direct Bilirubin 0.2 mg/dL (0.0-0.4) 05/04/20 11:50 Neonat Total Bilirubin Not Reportable 05/04/20 11:50 Neonat Direct Bilirubin Not Reportable 05/04/20 11:50 Neonat Indirect Bili Not Reportable 05/04/20 11:50 AST 27 U/L (17-59) 05/04/20 11:50 ALT 27 U/L (<50) 05/04/20 11:50 Alkaline Phosphatase 83 U/L (38-126) 05/04/20 11:50 Total Protein 9.1 g/dL (6.3-8.2) H 05/04/20 11:50 Albumin 4.9 g/dL (3.5-5.0) 05/04/20 11:50 Lipase 28.9 U/L (23-300) 05/04/20 11:50 Urine Color YELLOW 05/04/20 13:55 Urine Appearance CLEAR 05/04/20 13:55 Urine pH 5.0 (5.0-9.0) 05/04/20 13:55 Ur Specific [place] 1.021 05/04/20 13:55 Urine Protein NEGATIVE mg/dL (NEGATIVE) 05/04/20 13:55 Urine Glucose (UA) NEGATIVE mg/dL (NEGATIVE) 05/04/20 13:55 Urine Ketones NEGATIVE mg/dL (NEGATIVE) 05/04/20 13:55 Urine Blood NEGATIVE (NEGATIVE) 05/04/20 13:55 Urine Nitrite NEGATIVE (NEGATIVE) 05/04/20 13:55 Urine Bilirubin NEGATIVE (NEGATIVE) 05/04/20 13:55 Urine Urobilinogen NEGATIVE mg/dL (<2.0) 05/04/20 13:55 Ur Leukocyte Esterase NEGATIVE (NEGATIVE) 05/04/20 13:55 Urine WBC (Auto) 1 /HPF 05/04/20 13:55 Urine RBC (Auto) 1 /HPF 05/04/20 13:55 Urine Mucus (Auto) FEW /LPF 05/04/20 13:55 Urine Ascorbic Acid NEGATIVE (NEGATIVE) 05/04/20 13:55 Impressions: Abdomen X-Ray 05/04/20 11:51 IMPRESSION: There are dilated small bowel loops over the mid abdomen measuring up to 3.5 cm diameter with small air-fluid levels, possible developing early obstruction versus focal inflammatory process. Follow-up recommended. Abdomen/Pelvis CT 05/04/20 16:30 IMPRESSION: 1. DISTAL SMALL BOWEL OBSTRUCTION. A CLEAR-CUT OBSTRUCTING LESION IS NOT VISUALIZED. 2. 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 3. NO OTHER SIGNIFICANT OR ACUTE FINDINGS IN THE ABDOMEN OR PELVIS. KUB X-Ray 05/04/20 16:48 IMPRESSION: Nasogastric catheter tip and side-port overlies the body of the stomach.NON-SPECIFIC BOWEL GAS PATTERN. Abdomen X-Ray 05/05/20 07:00 IMPRESSION: Similar dilated small bowel loops over the mid abdomen with a few air fluid levels. NG tube tip overlies the distal body of the stomach. KUB X-Ray 05/06/20 00:00 IMPRESSION: Gas pattern is nonspecific. Mildly prominent small bowel loops are present in the epigastric region not significantly changed from yesterday.
[2020-05-06 15:31] VITALS: BP 121/69
== END 2020-05-06 15:56 | disposition home or self-care (01) | DRG 392 ==
LOC: ER 10:17 → INTOOBSV 18:05 → EH 18:05 → 4S 20:17 → OBSVTOIN 05-05 11:05
PROVIDERS: ATTEND Surgery
PROC: 0D9670Z Drainage of Stomach with Drainage Device, Via Natural or Artificial Opening (ICD-10-PCS; principal; 2020-05-04)
DX: K52.9 Noninfective gastroenteritis and colitis, unspecified (principal); E86.0 Dehydration; I10 Essential (primary) hypertension; Z91.5 Personal history of self-harm; F17.290 Nicotine dependence, other tobacco product, uncomplicated; Z88.0 Allergy status to penicillin; F19.10 Other psychoactive substance abuse, uncomplicated
CPT/HCPCS: 36415; 74018; 74019; 74177; 80053; 81001; 83690; 85025; 99285; J0780; J1200; J2060; J2405; J3010; J3490; J7030; J7120